=== PATIENT | female | born 1950 | race Caucasian/White ===

== ENCOUNTER → 2019-10-20 11:45 | Outpatient (CLI) | payer MEDICARE, SELFPAY ==
--- NOTE | ~2019-10-20 | MM_ITS ---
EXAMINATION: MM screening [facility] BI w ginger HISTORY: Screening mammogram TECHNIQUE: Craniocaudal and mediolateral oblique 3-D tomosynthesis images were obtained and synthetic 2-D images were generated. CAD analysis was submitted and interpreted. COMPARISON: 03/16/2018, 03/09/2010 BREAST PARENCHYMAL COMPOSITION: There are scattered areas of fibroglandular density. FINDINGS: There is been interval biopsy of the previously described left breast calcifications. There is no evidence of suspicious mass, calcification, or architectural distortion to suggest malignancy in either breast. There has been no suspicious interval change. IMPRESSION: 1. No mammographic evidence of malignancy. 2. Recommend routine screening mammography in one year. BI-RADS Category 2: Benign finding(s). Reviewed, dictated and finalized at location A. VAULT ATTENDANT
== END ==
PROVIDERS: PCP Family Medicine; Visit Provider Family Medicine
DX: Z12.31 Encounter for screening mammogram for malignant neoplasm of breast (principal)
CPT/HCPCS: 77063; 77067

== ENCOUNTER 2020-11-09 13:46 | Outpatient (CLI) | payer MEDICARE, SELFPAY ==
--- NOTE | ~2020-11-09 | XR_ITS ---
EXAMINATION: XR chest 2V DATE: 11/09/2020 15:05 INDICATION: Hypertension TECHNIQUE: PA and lateral views of the chest are obtained. COMPARISON: 01/17/2019 FINDINGS: The lungs are free of acute opacities. There is no pleural effusion or pneumothorax. The ca rdiomediastinal silhouette is normal. Thoracolumbar levoscoliosis is noted. Surgical clips in the rig ht upper quadrant are likely from prior cholecystectomy. IMPRESSION: 1. No acute cardiopulmonary abnormality. Reviewed, dictated and finalized at location A. E BALL MIXER
--- NOTE | 2020-11-09 14:39 | ECG_ITS ---
Measurements Intervals [place] Rate: 75 P: [place]: 0 QRS: 50 QRSD: 79 T: 43 QT: 401 QTc: 450 Interpretive Statements SINUS RHYTHM FREQUENT VENTRICULAR PREMATURE COMPLEXES BASELINE ARTIFACT- I, II, III, AVR, AVL, AVF, V3 ABNORMAL ECG Electronically Signed On 11-09-2020 15:11:06 PAPER TWISTER by Raúl Ohara D.O.
[2020-11-09 15:35] LABS: Urine Cotinine NEGATIVE
[2020-11-09 17:51] LABS: Hemoglobin A1C 5.2 % (<5.7)
== END 2020-11-09 13:47 | disposition home or self-care (01) ==
LOC: ANHSURGERY 13:52
PROVIDERS: PCP Family Medicine; Visit Provider Orthopaedic Surgery
DX: M16.12 Unilateral primary osteoarthritis, left hip (principal); Z01.818 Encounter for other preprocedural examination
CPT/HCPCS: 71046; 80307; 83036; 87070; 93005

== ENCOUNTER 2020-11-16 14:16 | Outpatient (CLI) | payer MEDICARE, SELFPAY | END 2020-11-16 14:17 | disposition home or self-care (01) | PROVIDERS: PCP Family Medicine; Visit Provider Orthopaedic Surgery | DX: M16.12 Unilateral primary osteoarthritis, left hip (principal); Z01.818 Encounter for other preprocedural examination | CPT/HCPCS: 36415; 82306 ==

== ENCOUNTER → 2020-11-23 00:15 | Outpatient (CLI) | payer MEDICARE, SELFPAY ==
[2020-11-23 17:44] LABS: SARS-CoV-2 RNA PCR Negative
== END ==
PROVIDERS: PCP Family Medicine; Visit Provider Orthopaedic Surgery
DX: Z01.812 Encounter for preprocedural laboratory examination (principal); Z20.822 Contact with and (suspected) exposure to COVID-19
CPT/HCPCS: C9803; U0003; U0005

== ENCOUNTER 2020-11-26 01:10 | Day surgery (SDC) | payer MEDICARE, SELFPAY ==
[2020-11-09 14:00] VITALS: BMI 32.9
[2020-11-09 14:38] VITALS: BP 143/82; PULSE 66; RESP 16; TEMP 36.8; O2SAT 98
--- NOTE | 2020-11-23 08:31 | PM.IMHP ---
H&P: HPI History of Present Illness Date/Time: 11/23/20 08:[id number] y/o patient of Dr. Mcleod.She presents today for and anterior left total hip arthroplasty. She has been having increasing pain in the left hip. She is at a point now where she is having severe pain on a daily basis. She has been on Celebrex daily as well as tramadol p.r.n. without improvement of her symptoms. She has severe arthritis in the left hip. She has undergone a right total hip replacement and did very well with this back in 2019. She has reached a point where she just feels she is ready to proceed with total hip arthroplasty rather continue nonsurgical treatment. <ELOISA Marshall - Last Filed: 11/23/20 08:39> Chief Complaint: left hip DJD <ELOISA Marshall - Last Filed: 11/23/20 08:39> Review of Systems Review of Systems: All systems reviewed & are unremarkable except as noted in HPI and below <ELOISA Marshall - Last Filed: 11/23/20 08:39> [facility] Past Medical History Medical History: Medical History Chronic low back pain Depression Dyslipidemia Essential (primary) hypertension First degree atrioventricular block 09/20/2018 Mild intermittent asthma in adult without complication Scoliosis Unspecified osteoarthritis, unspecified site <ELOISA Marshall - Last Filed: 11/23/20 08:39> Surgical History Surgical History: Surgical History History of cholecystectomy History of right knee joint replacement 2016 History of total right hip replacement 2019 <ELOISA Marshall - Last Filed: 11/23/20 08:39> Family History Family History: Family History Other Diabetes mellitus Family history of coronary artery disease Hypertension <ELOISA Marshall - Last Filed: 11/23/20 08:39> Social History Social History: Social History Years smoked: 30 Smoking status: Former smoker Tobacco type: cigarettes Second hand tobacco smoke exposure: No Smoking end date: 08/31/18 Additional smoking assessment comments: DENIES ANY FORM OF TOBACCO USE Alcohol intake: never Substance use: never Substance use type: does not use Living arrangements: alone Spiritual care concerns: No <ELOISA Marshall - Last Filed: 11/23/20 08:39> Meds Home Medications and Allergies Home medications: Home Medications Medication Instructions Recorded Confirmed Type cholecalciferol (vitamin D3) 25 25 mcg PO DAILY 04/09/20 11/26/20 History mcg (1,000 unit) capsule caxravo-lonszctav-jrid 1 tablet PO DAILY 11/09/20 11/26/20 History celecoxib 200 mg PO DAILY PRN 11/09/20 11/26/20 History coQ10 (ubiquinol) 100 mg PO DAILY 11/09/20 11/26/20 History cyanocobalamin (vitamin B-12) 1,000 mcg PO DAILY 11/09/20 11/26/20 History fluticasone furoate-vilanterol 1 inh INHALATION DAILY 11/09/20 11/26/20 History [Breo Ellipta] tramadol 50 mg PO PRN PRN 11/09/20 11/26/20 History lisinopril 5 mg PO DAILY 11/26/20 11/26/20 History pravastatin 20 mg PO DAILY 11/26/20 11/26/20 History sertraline 50 mg PO DAILY 11/26/20 11/26/20 History <ELOISA Marshall - Last Filed: 11/23/20 08:39> Allergies/Adverse reactions: Allergies Allergy/AdvReac Type Severity Reaction Status Date / Time Sulfa (Sulfonamide AdvReac Mild Rash Verified 11/26/20 06:12 Antibiotics) <ELOISA Marshall - Last Filed: 11/23/20 08:39> Exam Narrative: Exam Narrative: 70-year-old female alert pleasant. She is 4 ft 10 and 154 lb. Left hip flexes to 90? internally rotates to 0 externally rotates 25 ball with moderate groin pain. Skin is all normal or around the anterior groin. She does have some [id number] tenderness over the greater trochanter and some mild weakness with abductor testing in lateral pos
[2020-11-26] VITALS (12 sets, daily range): BP systolic 114–136; BP diastolic 56–84; PULSE 62–82; RESP 11–20; TEMP 35.8–37.2; O2SAT 92–100
--- NOTE | ~2020-11-26 | XR_ITS ---
EXAMINATION: XR surgery orthopedic DATE: 11/26/2020 10:51 INDICATION: Anterior approach left total hip arthroplasty TECHNIQUE: Single frontal fluoroscopic spot image of the left hip was obtained during procedure perfo rmed by Dr. Plaza. Radiologist was not present for the imaging or procedure. The amount of fluorosc opy time used during this procedure was 0.7 minutes. COMPARISON: None. FINDINGS: Noncemented left total hip arthroplasty which is in near-anatomic alignment on the single provided fr ontal projection. No fracture. Expected loosening soft tissue gas at the operative bed. IMPRESSION: 1. Left total hip arthroplasty in near-anatomic alignment, negative for postoperative purposes. Reviewed, dictated and finalized at location A. IMPRESSION: 1. Left total hip arthroplasty in near-anatomic alignment, negative for postope rative purposes.
--- NOTE | ~2020-11-26 | XR_ITS ---
EXAMINATION: XR hip LT min 2V EXAM DATE: 11/26/2020 11:18 INDICATION: TECHNIQUE: Portable frontal, crosstable lateral projections left hip obtained immediately following arthroplasty. Procedure performed by Crow Plaza MD. FINDINGS: Patient is status post left hip arthroplasty. The orthopedic hardware is in expected posi tion. There is a laterally placed surgical drain. There is small amount of subcutaneous gas, some s oft tissue swelling. Correlate with procedure note. There was an existing right hip arthroplasty. IMPRESSION: Status post left hip arthroplasty. Reviewed, dictated and finalized at location A.
[2020-11-26] MEDS: ACETAMINOPHEN 500 MG TABLET 1000 MG PO ×3 (06:35→17:20)
[2020-11-26] MEDS: LACTATED RINGERS 1,000 ML 30 ML IV CONT ×2 (06:40→11:22)
--- NOTE | 2020-11-26 06:43 | WPDANESEPPF ---
Anes - Initial Pre Proc Eval Procedure: Operation Date: 11/26/20 07:30 Proposed Procedures p Left Total Hip Arthroplasty Anterior Approach - Crow Plaza MD Date/Time: 11/26/20 06:43 Surgeon: Crow Plaza MD Pre Op Diagnosis: Left Hip OA Patient Data Age: 70 Gender: F Height: 5 ft Weight: 73.8 kg Last Vital Signs Temp 36.8 C 11/09/20 14:38 Pulse 66 11/09/20 14:38 Resp 16 11/09/20 14:38 BP 143/82 H 11/09/20 14:38 Pulse Ox 98 11/09/20 14:38 Allergies Allergy/AdvReac Type Severity Reaction Status Date / Time Sulfa (Sulfonamide AdvReac Mild Rash Verified 11/26/20 06:12 Antibiotics) Home Medications Medication Instructions Recorded Confirmed Type cholecalciferol (vitamin D3) 25 25 mcg PO DAILY 04/09/20 11/26/20 History mcg (1,000 unit) capsule mgodyzj-trddsnkzk-igyz 1 tablet PO DAILY 11/09/20 11/26/20 History celecoxib 200 mg PO DAILY PRN 11/09/20 11/26/20 History coQ10 (ubiquinol) 100 mg PO DAILY 11/09/20 11/26/20 History cyanocobalamin (vitamin B-12) 1,000 mcg PO DAILY 11/09/20 11/26/20 History fluticasone furoate-vilanterol 1 inh INHALATION DAILY 11/09/20 11/26/20 History [Breo Ellipta] tramadol 50 mg PO PRN PRN 11/09/20 11/26/20 History lisinopril 5 mg PO DAILY 11/26/20 11/26/20 History pravastatin 20 mg PO DAILY 11/26/20 11/26/20 History sertraline 50 mg PO DAILY 11/26/20 11/26/20 History Patient hx anesthesia problems: post op nausea/vomiting Family hx anesthesia problems: none PMFSH Past Medical History Medical History Chronic low back pain Depression Dyslipidemia Essential (primary) hypertension First degree atrioventricular block 09/20/2018 Mild intermittent asthma in adult without complication Scoliosis Unspecified osteoarthritis, unspecified site Surgical History Surgical History History of cholecystectomy History of right knee joint replacement 2016 History of total right hip replacement 2019 Family History Family History Other Diabetes mellitus Family history of coronary artery disease Hypertension Social History Social History Years smoked: 30 Smoking status: Former smoker Tobacco type: cigarettes Second hand tobacco smoke exposure: No Smoking end date: 08/31/18 Additional smoking assessment comments: DENIES ANY FORM OF TOBACCO USE Alcohol intake: never Substance use: never Substance use type: does not use Living arrangements: alone Spiritual care concerns: No Anes - Eval Final PreProcedure Day of Procedure 11/26/20 06:43 Patient weight: obese Heart: regular rate and rhythm Lungs: decreased breath sounds Airway: Mallampati scale class II Neurological: alert and oriented Last oral intake: >/= 8 hours ASA classification: III Emergent: no Anesthetic plan: proceed Anesthesia type and monitoring: general ETT and standard monitoring Informed Consent: The patient's anesthetic plan and its attendant risks and benefits were discussed with the patient/family/POA. Questions were solicited and answers provided to the satisfaction of the patient/family/POA.
[2020-11-26] MEDS: TRANEXAMIC ACID 1,000MG/ISO100 1,000 MG/100 ML BAG 200 MG IVPB (06:52)
--- NOTE | 2020-11-26 07:17 | WPDHPUPDATE1 ---
History and Physical Update Update Date/Time: 11/26/20 07:17 History and Physical has been reviewed, including an updated exam of the patient. There are NO changes in the patient's condition. Risks, benefits, and alternatives have been discussed and questions answered. Patient agrees to proceed with procedure.
[2020-11-26] MEDS: ceFAZolin 2 GM/D5W 50 ML 2 GM/50 ML BAG IVPB (07:38)
[2020-11-26] MEDS: ceFAZolin SODIUM 1 GM VIAL 3 GM IRRIGATION (08:29)
[2020-11-26] MEDS: ceFAZolin SODIUM 1 GM VIAL IV PUSH (10:43)
--- NOTE | 2020-11-26 11:43 | P.OP_ITS ---
Procedure Note - Detailed Date of procedure: 11/26/20 Pre-op diagnosis: Left Hip OA Post-op diagnosis: same Procedure performed: Direct anterior approach left total hip arthroplasty Description of procedure: Patient was brought to the operating room and general anesthesia was administered. Padding was placed on the feet and feet placed in the boots and she was transferred to [facility] table and the left hip prepped draped usual fashion. She received 2 g of Ancef weight based vancomycin 1 g of tranexamic acid preoperatively. A 10 cm longitudinal incision was made starting 3 cm lateral to the ASIS. Dissection was carried down to the fascia over the tensor fascia vinicio which was longitudinally incised and elevated off the anterior 1/2 the tensor fascia vinicio and interval between TFL and rectus femoris developed. Crossing branches of ascending branch lateral femoral circumflex vessels were ligated with suture and divided. The capsule was exposed hip was abducted internally rotated and gluteus minimus was elevated off the lateral capsule. Capsule was incised in the usual fashion. Femoral neck osteotomy made napkin ring of bone removed femoral head removed without difficulty. It measured 47 mm diameter. The labrum was excised. The leg was externally rotated extended and interval between conjoined tendon and piriformis was incised which allowed the piriformis to flip and the femur mobilized anteriorly. Anterior capsule was elevated off the anterior distal femur. With the leg in the horizontal position externally rotated the acetabulum was prepared medialized with a 44 and reaming up to 49 and 49 trial head tight fit. We gently reamed with a 50 and impacted a 50 pinnacle shell was obtained excellent press fit. Single screw was placed in the ilium. This was placed at 40? of abduction and the anterior margin just under the anterior margin of the acetabulum. This left a few mm proud superior posteriorly. The 32 inner diameter acetabular liner was seated without difficulty. The femur was externally rotated and extended and we broached up to a size 3 which had solid torsional stability varus valgus stability. We trialed and I felt that the standard offset with a +9 head restored the length and offset most appropriately and this gave excellent stability with nice Shuck. The size 3 standard neck Actis stem was fully seated to the level of the calcar planing. There was excellent stability of the stem and radiograph showed that it filled line to line in the intramedullary surface. We trialed and again the 9 gave the appropriate Shuck but with excellent stability. The ceramic 9 was placed onto the clean and dried trunnion and the hip reduced. The wound had been irrigated multiple times during the procedure with Ancef solution. Appropriate stability and soft tissue tension reconfirmed. The anterior capsular flap was allowed to rest in situ Some of the lateral capsular flap was resected earlier. The fascia over the tensor fascia vinicio was closed with running 1. Vicryl a drain binu susie deep in the subcutaneous layer skin closed with to a subcutaneous Vicryl and glue EBL is 300 cc. One hundred twenty-five as Cell Saver was returned. She received an additional g of Ancef in g of tranexamic acid time wound closure was transferred postop recovery room stable condition. She was seen to be able to wiggle her toes up and down without difficulty at that time. Implants: depuy actis Anesthesia: GETA Surgeon: Crow Plaza MD Insulation Board Calender Operator: Mary Estimated blood loss (mL): 300 Drains: Yes Packing: No Pathology: none sent Condition: stable Disposition: PACU Findings: 125 cc cell saver returned.
[2020-11-26] MEDS: ONDANSETRON INJ 4 MG/2 ML VIAL IV PUSH ×2 (11:54→17:34)
[2020-11-26] MEDS: fentaNYL CITRATE INJ (*CRX) 100 MCG/2 ML VIAL 25 MCG IV PUSH ×4 (11:57→12:11)
--- NOTE | 2020-11-26 12:40 | ADMGEN ---
This patient, Tamera Sibley, was admitted to Medical Room 253-01. Patient/family oriented to hospital policies and general routines including ID bracelet, bed and alarms, visiting hours, pain management, procedures, bathroom and other care routines, personal items, smoking policy, room service/diet, and visiting hours. Information on how to activate the Rapid Response Team has been discussed. Patient/Family are encouraged to report perceived risks to care and to ask questions if they do not understand what they are told or what they should do.
[2020-11-26 12:55] LABS: Hemoglobin 12.6 g/dL (12.0-15.0)
[2020-11-26] MEDS: oxyCODONE HCL (*CRX) 5 MG TAB IR PO ×3 (13:30→21:31)
[2020-11-26] MEDS: SENNA/DOCUSATE SODIUM TABLET 2 TAB PO (17:20)
[2020-11-26] MEDS: FAMOTIDINE 20 MG TABLET PO (21:30)
[2020-11-26] MEDS: APIXABAN 2.5 MG TABLET PO (21:30)
[2020-11-27] MEDS: oxyCODONE HCL (*CRX) 5 MG TAB IR PO ×3 (00:26→08:07)
[2020-11-27] MEDS: ACETAMINOPHEN 500 MG TABLET 1000 MG PO ×3 (00:26→11:02)
[2020-11-27 02:15] VITALS: BP 130/73; PULSE 68; RESP 20; TEMP 36.2; O2SAT 98
[2020-11-27 04:53] VITALS: BP 130/73; PULSE 68; RESP 20; TEMP 36.2; O2SAT 98
[2020-11-27 05:34] LABS: Basophils Percent Auto 0.2 % (0.2-1.2); Eosinophils Percent Auto 0.1 % (0-4.4); Hematocrit 33.6 % (37.0-47.0); Immature Granulocyte Absolute 0.08 K/mm3 (0.00-0.031); Immature Granulocyte Percent A 0.6 % (0-0.5); Lymphocytes Percent Auto 8.5 % (18.3-44.2); Mean Corpuscular HGB Conc 32.7 g/dl (32-36); Mean Corpuscular Hemoglobin 31.2 pg (26-34); Mean Corpuscular Volume 95.2 fl (80-100); Mean Platelet Volume 10.5 fl (7.4-10.4); Monocytes Absolute Auto 0.9 K/mm3 (0.1-0.6); Neutrophils Absolute Auto 10.8 K/mm3 (1.3-6.7); Neutrophils Percent Auto 83.6 % (45.5-73.1); Platelet Count Result 191 k/mm3 (150-375); Red Blood Count 3.53 M/mm3 (4.2-5.4); Red Cell Distribution Width 13.5 % (11.5-14.5); White Blood Count 12.9 K/mm3 (4.5-10.0)
--- NOTE | 2020-11-27 06:13 | PM.PNORT ---
Progress Note: A&P Additional Plan POD 1 alert avss labs-noted BMP-pending, pt has been up walking with PT yesterday, and up to restroom overnight, drain is out NVI wd-dry, overall pt doing well, plan to send home later today Subjective Subjective Date/Time Seen: 11/27/20 06:13 Objective Data Vital Signs Vital Signs: Vital Signs - 24 hr 11/26/20 06:14 11/26/20 11:22 11/26/20 11:37 Temperature 37.2 C 36.6 C Pulse Rate 76 79 82 Respiratory Rate 20 16 14 Blood Pressure 114/60 114/56 L 136/70 Pulse Oximetry 98 100 100 11/26/20 11:50 11/26/20 12:05 11/26/20 12:20 Temperature Pulse Rate 75 67 67 Respiratory Rate 11 L 16 13 Blood Pressure 136/69 123/69 132/84 Pulse Oximetry 98 94 92 11/26/20 12:40 11/26/20 13:25 11/26/20 14:15 Temperature 35.8 C L 36.3 C L Pulse Rate 62 63 Respiratory Rate 14 14 16 Blood Pressure 124/72 131/62 Pulse Oximetry 92 98 95 11/26/20 17:04 11/26/20 20:31 11/26/20 20:49 Temperature 35.9 C L 36.1 C L Pulse Rate 71 65 72 Respiratory Rate 16 20 Blood Pressure 136/78 124/68 Pulse Oximetry 98 96 93 11/27/20 02:15 11/27/20 04:53 Temperature 36.2 C L 36.2 C L Pulse Rate 68 68 Respiratory Rate 20 20 Blood Pressure 130/73 130/73 Pulse Oximetry 98 98 Intake/Output Intake/Output: Intake & Output 11/24/20 11/25/20 11/26/20 11/27/20 23:59 23:59 23:59 23:59 Intake Total 1570 340 Output Total 590 990 Balance 980 -650 Meds/Results Medications: Active Medications Generic Name Dose Route Start Last Admin Trade Name Freq PRN Reason Stop Dose Admin Acetaminophen 1,000 mg 11/26/20 12:30 11/27/20 05:20 Acetaminophen 500 Mg Tablet PO 1,000 mg Q6HR WILSON Administration Al Hydrox/Mg Hydrox/Simethicone 30 ml 11/26/20 12:30 Mag Hydrox/Al Hydrox/Simeth 30 Ml Udc PO Q6H PRN Indigestion Apixaban 2.5 mg 11/26/20 21:00 11/26/20 21:30 Apixaban 2.5 Mg Tablet PO 2.5 mg Q12HR WILSON Administration Budesonide/Formoterol Fumarate 2 puff 11/26/20 20:00 11/26/20 20:23 Budesonide/Form 160-4.5 Mcg (*Sp) INHALATION 2 puff Q12HRT WILSON Administration Celecoxib 200 mg 11/27/20 09:00 Celecoxib 200 Mg Capsule PO DAILY WILSON Famotidine 20 mg 11/26/20 21:00 11/26/20 21:30 Famotidine 20 Mg Tablet PO 20 mg Q12HR WILSON Administration Hydroxyzine HCl 50 mg 11/26/20 12:30 Hydroxyzine Hcl 25 Mg Tablet PO Q4H PRN Itching Vancomycin HCl 1,000 mg in 250 mls @ 250 mls/hr 11/26/20 19:00 11/26/20 19:32 Vancomycin 1,000 Mg/D5w 250 Ml IVPB 11/27/20 07:59 Infused Q12H WILSON Infusion Cefazolin Sodium 1 gm in 50 mls @ 100 mls/hr 11/26/20 14:00 11/27/20 05:50 Ancef 1 Gm/D5w 50 Ml Pm IVPB 11/27/20 06:29 Infused Q8H WILSON Infusion Magnesium Hydroxide 30 ml 11/26/20 12:30 Magnesium Hydroxide Susp 30 Ml Udc PO BID PRN Constipation Morphine Sulfate 2 mg 11/26/20 12:30 Morphine Sulfate (*Crx) 2 Mg/Ml Inj IV PUSH Q4H PRN Pain Rated 7-10 Naloxone HCl 0.1 mg 11/26/20 12:30 Naloxone Hcl 0.4 Mg/Ml Vial IV PUSH Q2M PRN Opiate Reversal Ondansetron HCl 4 mg 11/26/20 12:30 11/26/20 17:34 Ondansetron Inj 4 Mg/2 Ml Vial IV PUSH 4 mg Q4H PRN Administration Nausea And Vomiting Oxycodone HCl 5 mg 11/26/20 13:00 11/27/20 05:19 Oxycodone Hcl (*Crx) 5 Mg Tab Ir PO 5 mg Q4H WILSON Administration Oxycodone HCl 5 mg 11/26/20 12:30 Oxycodone Hcl (*Crx) 5 Mg Tab Ir PO Q4H PRN Pain Rated 4-6 Polyethylene Glycol 17 gm 11/27/20 09:00 Polyethylene Glycol 3350 17 Gm Powd.Pack PO QAM [facility] Pravastatin Sodium 20 mg 11/27/20 09:00 Pravastatin Sodium 20 Mg Tablet PO DAILY [facility] Senna/Docusate Sodium 2 tab 11/26/20 17:00 11/26/20 17:20 Senna/Docusate Sodium Tablet PO 2 tab BID [facility] Administration Sertraline HCl 50 mg 11/27/20 09:00 Sertraline Hcl 50 Mg Tablet PO DAILY [facility] Vitamin D 1,000 units 10/31
--- NOTE | 2020-11-27 06:20 | PM.DS ---
DS: Admitting Diagnosis Admitting Diagnosis Admitting Diagnosis: left hip DJD DS: Summary Hospital Course Hospital Course: stable Time Spent with Patient Time attestation: Total time spent providing and/or coordinating discharge services: 70-year-old female underwent a left anterior total hip arthroplasty 11/26/2020. With the procedure without any complications. Postoperatively she has been afebrile vital Signs is stable no rash intact her wound is dry. Drain is out. She is 50% weight-bearing walker for 1st month. She oxycodone 5 mg every 4 hours as well as Celebrex once a day schedule Tylenol for pain control. She will be Eliquis for 5 weeks for DVT prophylaxis. Postop day 1 patient was alert comfortable pain was controlled. We will plan have the patient work with physical therapy on postop day 1 and his long as she is doing well her symptoms they very tolerable will plan on discharging home later that day on 11/27. She also Hohmann Senokot MiraLax. Patient was advised to keep leg elevated at home prevent swelling. Again she is to use the walker be 50% weight-bearing for the 1st month. Was advised any questions or concerns when she goes home she should call the office otherwise will see her at her point to date. DS: Data Data Completed and Pending Labs on day of discharge: Labs from last 24 hours 11/27/20 11/27/20 11/26/20 05:19 05:19 12:50 WBC 12.9 H RBC 3.53 L Hgb 11.0 L 12.6 Hct 33.6 L 38.0 MCV 95.2 MCH 31.2 MCHC 32.7 RDW 13.5 Plt Count 191 MPV 10.5 H Immature Gran % (Auto) 0.6 H Neut % (Auto) 83.6 H Lymph % (Auto) 8.5 L [place] % (Auto) 7.0 Eos % (Auto) 0.1 Baso % (Auto) 0.2 Lymph # (Auto) 1.10 [place] # (Auto) 0.9 H Eos # (Auto) 0.0 Baso # (Auto) 0.0 Abs Immat Gran (auto) 0.08 H Absolute Neuts (auto) 10.8 H Absolute Nucleated RBC 0.0 Nucleated RBC % 0.0 Sodium Pending Potassium Pending Chloride Pending Carbon Dioxide Pending Anion Gap Pending BUN Pending Creatinine Pending Estim Creat Clear Calc Pending Estimated GFR Pending Glucose Pending Calcium Pending Blood Type Antibody Screen 11/26/20 06:37 WBC RBC Hgb Hct MCV MCH MCHC RDW Plt Count MPV Immature Gran % (Auto) Neut % (Auto) Lymph % (Auto) [place] % (Auto) Eos % (Auto) Baso % (Auto) Lymph # (Auto) [place] # (Auto) Eos # (Auto) Baso # (Auto) Abs Immat Gran (auto) Absolute Neuts (auto) Absolute Nucleated RBC Nucleated RBC % Sodium Potassium Chloride Carbon Dioxide Anion Gap BUN Creatinine Estim Creat Clear Calc Estimated GFR Glucose Calcium Blood Type O Positive Antibody Screen Negative Discharge Plan Discharge Patient Disposition: Home, Self-Care Discharge Instructions: [facility], [place] [address] [address] [place] [id number] POST-OPERATIVE DISCHARGE INSTRUCTIONS ANTERIOR TOTAL HIP ARTHROPLASTY 1. Move toes/feet up and down every hour while awake. 2. Be up walking every hour while awake. 3. Use walker insole lip turner with 50% WB on surgical leg. Avoid sitting in a chair unless eating, receiving visitors or using the toilet. 4. When resting, lie on back with leg elevated above heart to minimize swelling. Significant swelling could indicate a blood clot and if this occurs, call the office (or go to the ER) to have a venous ultrasound performed. 5. Wound Care: Keep dry sponge on wound for 2 weeks. Use minimal tape. 6. Follow weight bearing status as instructed. 7. May shower with dressing off. Patient Instructions: Precautions after Total Joint Replacement Surgery (DC), Total Hip Replacement (DC) Follow-up/Referrals: Crow Plaza MD [Physician] - Keep Reg. Scheduled Appt. Discharge Medications: New celecoxib [Celebrex] 200 mg Capsule 200 mg PO DAILY Qty: 14 RF: 0 po
[2020-11-27 06:43] LABS: Anion Gap 5 mmol/L (8-16); Blood Urea Nitrogen 12 mg/dL (7-17); Calcium 8.9 mg/dL (8.4-10.2); Carbon Dioxide 24 mmol/L (22-30); Chloride 109 mmol/L (98-107); Estimated CRCL calculation 50 ml/min; Estimated Glomerular Filt Rate > 60; Glucose 101 mg/dL (65-105); Potassium 4.3 mmol/L (3.4-5.0); Sodium 138 mmol/L (137-145)
[2020-11-27] MEDS: CELECOXIB 200 MG CAPSULE PO (08:05)
[2020-11-27] MEDS: APIXABAN 2.5 MG TABLET PO (08:05)
[2020-11-27] MEDS: FAMOTIDINE 20 MG TABLET PO (08:06)
[2020-11-27] MEDS: CHOLECALCIFEROL 1,000 UNITS TABLET 1000 UNITS PO (08:06)
[2020-11-27] MEDS: polyethylene glycoL 3350 17 GM POWD.PACK PO (08:07)
[2020-11-27] MEDS: SENNA/DOCUSATE SODIUM TABLET 2 TAB PO (08:07)
[2020-11-27] MEDS: SERTRALINE HCL 50 MG TABLET PO (08:07)
[2020-11-27] MEDS: PRAVASTATIN SODIUM 20 MG TABLET PO (08:07)
--- NOTE | 2020-11-27 09:38 | P.PNAN_ITS ---
Anes - Prog Note Post-Op Date/Time: 11/27/20 09:38 Cardiovascular status: normal Respiratory status: normal Airway patency: baseline Mental status: baseline Post-Op hydration status: normal Vital Signs: Last Vital Signs Temp 36.2 C L 11/27/20 04:53 Pulse 68 11/27/20 04:53 Resp 20 11/27/20 04:53 BP 130/73 11/27/20 04:53 Pulse Ox 98 11/27/20 04:53 Pain Score (VAS): 2 I/O: Intake & Output 11/26/20 11/27/20 11/27/20 23:59 07:59 15:59 Intake Total 780 340 Output Total 530 990 Balance 250 -650 Laboratory Tests 11/27/20 05:19 11/27/20 06:09 11/26/20 11/27/20 11/27/20 12:50 05:19 06:09 WBC 12.9 H RBC 3.53 L Hgb 12.6 11.0 L Hct 38.0 33.6 L MCV 95.2 MCH 31.2 MCHC 32.7 RDW 13.5 Plt Count 191 MPV 10.5 H Immature Gran % (Auto) 0.6 H Neut % (Auto) 83.6 H Lymph % (Auto) 8.5 L [place] % (Auto) 7.0 Eos % (Auto) 0.1 Baso % (Auto) 0.2 Lymph # (Auto) 1.10 [place] # (Auto) 0.9 H Eos # (Auto) 0.0 Baso # (Auto) 0.0 Abs Immat Gran (auto) 0.08 H Absolute Neuts (auto) 10.8 H Absolute Nucleated RBC 0.0 Nucleated RBC % 0.0 Sodium 138 Potassium 4.3 Chloride 109 H Carbon Dioxide 24 Anion Gap 5 L BUN 12 Creatinine 0.80 Estim Creat Clear Calc 50 Estimated GFR > 60 Glucose 101 Calcium 8.9 Post-procedural complaints: none Patient Feedback: Patient satisfied with anesthetic care.
== END 2020-11-27 11:35 | disposition home or self-care (01) ==
LOC: ANHSURGERY 05:58 → ANH2MED 12:34
PROVIDERS: Physician Assistant Surgical; PCP Family Medicine; Visit Provider Orthopaedic Surgery
PROC: (CPT 27130; principal; 2020-11-26 07:30)
DX: M16.12 Unilateral primary osteoarthritis, left hip (principal); I10 Essential (primary) hypertension; E78.5 Hyperlipidemia, unspecified; J45.20 Mild intermittent asthma, uncomplicated; F32.9 Major depressive disorder, single episode, unspecified; I44.0 Atrioventricular block, first degree; Z87.891 Personal history of nicotine dependence; E66.9 Obesity, unspecified; Z68.31 Body mass index [BMI] 31.0-31.9, adult
CPT/HCPCS: 27130; 36415; 73502; 80048; 85014; 85018; 85025; 86850; 86900; 86901; 97110; 97116; 97161; 97165; 97530; A9270; C1776; J0171; J0690; J1100; J1170; J2250; J2270; J2405; J2704; J2710; J2795; J3010; J3370; J7120

== ENCOUNTER → 2020-12-28 13:27 | Outpatient (CLI) | payer MEDICARE, SELFPAY ==
--- NOTE | ~2020-12-28 | MM_ITS ---
EXAMINATION: MM screening yun BI w ginger HISTORY: Screening mammogram TECHNIQUE: Craniocaudal and mediolateral oblique 3-D tomosynthesis images were obtained and synthetic 2-D images were generated. CAD analysis was submitted and interpreted. COMPARISON: 10/20/2019 bilateral digital screening mammogram BREAST PARENCHYMAL COMPOSITION: There are scattered areas of fibroglandular density. FINDINGS: There are bilateral mammographic asymmetries with possible new opacities since 10/20/2019. B ilateral diagnostic mammography and ultrasound is recommended. IMPRESSION: 1. Bilateral mammographic asymmetries 2. Bilateral diagnostic mammography and breast ultrasound examination are recommended BI-RADS Category 0: Incomplete: Needs additional imaging evaluation. Reviewed, dictated and finalized at location A. IMPRESSION: 1. Bilateral mammographic asymmetries 2. Bilateral diagnostic mammography and breast ultrasound examination are recom mended BI-RADS Category 0: Incomplete: Needs additional imaging evaluation.
== END ==
PROVIDERS: PCP Family Medicine; Visit Provider Nurse Practitioner Family
DX: Z12.31 Encounter for screening mammogram for malignant neoplasm of breast (principal); R92.8 Other abnormal and inconclusive findings on diagnostic imaging of breast
CPT/HCPCS: 77063; 77067

== ENCOUNTER 2021-01-18 12:50 | Outpatient (CLI) | payer MEDICARE, SELFPAY ==
--- NOTE | ~2021-01-18 | MMUS_ITS ---
EXAMINATION: MM diagnostic mammo BI, US breast BI complete HISTORY: Follow-up bilateral breast asymmetries TECHNIQUE: Additional 3-D tomosynthesis images of the breasts were performed and synthetic 2-D images were generated. CAD analysis was submitted and interpreted. High resolution bilateral complete breas t ultrasound was performed. COMPARISON: Comparison to multiple prior studies sequentially, with oldest reviewed study dated 03/19. BREAST PARENCHYMAL COMPOSITION: Breast composed of scattered areas of fibroglandular density FINDINGS: MAMMOGRAPHIC FINDINGS: There are no suspicious masses, calcifications or architectural distortion in either breast to sugges t malignancy. ULTRASOUND: Complete bilateral breast ultrasound: Normal heterogeneous echotexture without focal solid or cystic mass. IMPRESSION: 1. No mammographic or sonographic evidence for malignancy in either breast. 2. Routine yearly screening mammogram and regular clinical breast examination are recommended. BI-RADS Category 1: Negative Reviewed, dictated and finalized at location A. IMPRESSION: 1. No mammographic or sonographic evidence for malignancy in either breast. 2. Routine yearly screening mammogram and regular clinical breast examination a re recommended. BI-RADS Category 1: Negative
== END 2021-01-18 12:51 | disposition home or self-care (01) ==
LOC: ANHIMG 12:51
PROVIDERS: PCP Family Medicine; Visit Provider Nurse Practitioner Family
DX: R92.8 Other abnormal and inconclusive findings on diagnostic imaging of breast (principal)
CPT/HCPCS: 76641; 77066

== ENCOUNTER → 2022-02-03 10:42 | Outpatient (CLI) | payer MEDICARE, SELFPAY ==
--- NOTE | ~2022-02-03 | MM_ITS ---
EXAMINATION: MM screening [facility] BI w ginger HISTORY: Screening mammogram TECHNIQUE: Craniocaudal and mediolateral oblique 3-D tomosynthesis images were obtained and synthetic 2-D images were generated. CAD analysis was submitted and interpreted. COMPARISON: Prior mammograms dating back to 03/16/2018 BREAST PARENCHYMAL COMPOSITION: There are scattered areas of fibroglandular density. FINDINGS: There is no suspicious mass, calcification, or architectural distortion to suggest malignan cy in either breast. There has been no suspicious interval change. IMPRESSION: 1. No mammographic evidence of malignancy. 2. Recommend routine screening mammography in one year. BI-RADS Category 1: Negative Reviewed, dictated and finalized at location A.
== END ==
PROVIDERS: PCP Nurse Practitioner; Visit Provider Nurse Practitioner
DX: Z12.31 Encounter for screening mammogram for malignant neoplasm of breast (principal)
CPT/HCPCS: 77063; 77067

== ENCOUNTER → 2023-02-17 11:36 | Outpatient (CLI) | payer MEDICARE, SELFPAY ==
--- NOTE | ~2023-02-17 | MM_ITS ---
EXAMINATION: MM screening yun BI w ginger HISTORY: Screening mammogram TECHNIQUE: Craniocaudal and mediolateral oblique 3-D tomosynthesis images were obtained and synthetic 2-D images were generated. CAD analysis was submitted and interpreted. COMPARISON: 02/03/2022, 12/28/2020, 10/20/2019 bilateral screening mammogram examinations BREAST PARENCHYMAL COMPOSITION: There are scattered areas of fibroglandular density. FINDINGS: Biopsy marker in the left; history of prior benign left stereotactic breast biopsy. Scatter ed bilateral benign calcifications. There is no evidence of suspicious mass, calcification, or dale ectural distortion to suggest malignancy in either breast. There has been no suspicious interval dubose ge. IMPRESSION: 1. No mammographic evidence of malignancy. 2. Recommend routine screening mammography in one year. BI-RADS Category 2: Benign finding(s). Reviewed, dictated and finalized at location C.
--- NOTE | ~2023-02-17 | DEXA_ITS ---
Bone Density Report Name: GABRIEL HOPSON Age: 72 Sex: Female Ethnicity: White Date of : 1950 Indication: postmenopausal; screening for osteoporosis; height loss; Referring Provider: Leena Alaniz Study: Bone densitometry was performed. 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 These spine BMD and T score and Z score measurements are not reflective of the patient's true general bone mineral density. Bone Density: Region BMD T-score Z-score Classification AP Spine (L1, L2) 1.102 1.1 3.3 Normal World Health Organization criteria for BMD impression classify patients as: Normal (T-score at or above -1.0), Osteopenia (T-score between -1.0 and -2.5), or Osteoporosis (T-score at or below -2.5). Previous Exams: Region Exam Age BMD T-score BMD Change BMD Change Date g/cm2 vs Baseline vs Previous AP Spine(L1, L2) 02/17/2023 72 1.102 1.1 -0.117* -0.117* 03/09/2010 59 1.219 2.2 *Denotes significance at 95% confidence level, LSC for AP Spine = 0.022 g/cm2 Clinical Information Provided by Patient: Has used the following medications: Vitamin D, Calcium Patient maximum height was 60.5 Menopause Age: 52 Drinks caffeinated beverages Onset of menses at age 11 Number of children 1 Impression: The patient has normal bone mass. The BMD for the AP Spine(L1, L2) decreased, changing by -0.117 since the last DXA exam. 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 These spine BMD and T score and Z score measurements are not reflective of the patient's true general bone mineral density. Discussion: LOW RISK OF FRACTURE; BONE DENSITY IS WELL ABOVE THE MINIMUM DESIRABLE LEVEL AND ABOVE AVERAGE FOR AGE AND SEX AT ALL SKELETAL SITES TESTED. This person's bone density is above expected limits for age and sex. This is rarely clinically significant, but should be pursued if there are significant musculoskeletal complaints. The patient should follow a healthful lifestyle (good nutrition with adequate calcium and vitamin D, and appropriate weight-bearing exercise). Follow-Up: Consider repeating this study in 3 to 4 years to reassess this patient's status, or sooner if there is some new clinical indication. Reported by: IRIS on 02/17/2023 11:51:00 AM. Reviewed, dictated and finalized at location ADevonte [place]
== END ==
PROVIDERS: PCP Family Medicine; Visit Provider Nurse Practitioner
DX: Z12.31 Encounter for screening mammogram for malignant neoplasm of breast (principal); Z78.0 Asymptomatic menopausal state
CPT/HCPCS: 77063; 77067; 77080

== ENCOUNTER 2023-05-18 09:50 | Outpatient (CLI) | payer MEDICARE, SELFPAY ==
[2023-05-18 20:28] LABS: Alanine Aminotransferase 22 U/L (6-35); Albumin Level 4.1 g/dL (3.5-5.1); Alkaline Phosphatase 98 U/L (38-126); Anion Gap 6 mmol/L (8-16); Aspartate Amino Transferase 35 U/L (14-36); Bilirubin,Total 0.4 mg/dL (0.2-1.3); Blood Urea Nitrogen 27 mg/dL (7-17); Calcium 9.5 mg/dL (8.4-10.2); Carbon Dioxide 29 mmol/L (22-30); Chloride 104 mmol/L (98-107); Estimated Glomerular Filt Rate > 60; Glucose 83 mg/dL (65-110); Potassium 5.2 mmol/L (3.4-5.0); Sodium 139 mmol/L (137-145)
== END 2023-05-18 09:51 | disposition home or self-care (01) ==
PROVIDERS: PCP Family Medicine; Visit Provider Family Medicine
DX: E78.5 Hyperlipidemia, unspecified (principal); I10 Essential (primary) hypertension
CPT/HCPCS: 36415; 80053

== ENCOUNTER 2025-06-29 14:35 | Outpatient (CLI) | payer MEDICARE, SELFPAY ==
--- NOTE | ~2025-06-29 | MM_ITS ---
EXAMINATION: MM screening [facility] BI w ginger HISTORY: Screening TECHNIQUE: Craniocaudal and mediolateral oblique 3-D tomosynthesis images were obtained and synthetic 2-D images were generated. CAD analysis was submitted and interpreted. COMPARISON: Comparison to multiple prior studies sequentially, with oldest reviewed study dated 10/20/2019. BREAST PARENCHYMAL COMPOSITION: Not dense: There are scattered areas of fibroglandular density. FINDINGS: There is a developing cluster of calcifications in the upper outer quadrant of the left breast which have a pleomorphic appearance. The right breast is stable without evidence for malignancy. IMPRESSION: 1. Developing cluster of pleomorphic left breast calcifications, upper outer quadrant. 2. Magnification views are recommended. BI-RADS Category 0: Incomplete: Needs additional imaging evaluation. Reviewed, dictated and finalized at location B. IMPRESSION: 1. Developing cluster of pleomorphic left breast calcifications, upper outer qu adrant. 2. Magnification views are recommended. BI-RADS Category 0: Incomplete: Needs additional imaging evaluation.
--- NOTE | ~2025-06-29 | CT_ITS ---
CT lung screening INDICATION: History of nicotine use COMPARISON: None. TECHNIQUE: CT examination of the entire thorax without contrast was performed using low dose technique. Thin section axial, sagittal and coronal images were included to increase sensitivity for small lung nodules. FINDINGS: PULMONARY NODULES: No suspicious noncalcified pulmonary nodules seen. OTHER PULMONARY FINDINGS: No significant nonnodular pleural or parenchymal abnormality is noted. Mild emphysematous changes are present. 8.6 mm precarinal lymph nodes are noted. No pathologically enlarged lymph nodes are present. Normal heart size. Coronary artery calcifications are noted in this limited nongated CTA. UPPER ABDOMEN AND PERIPHERAL SOFT TISSUE: Limited views of the upper abdomen and peripheral soft tissue demonstrated no abnormalities. OSSEOUS STRUCTURES: Bone window shows no aggressive blastic or lytic lesions. Moderate scoliosis. IMPRESSION: 1. Lung-RADS category 1: No nodules or definitely benign nodules. Recommendations: 1 or 2: Annual screening with low-dose CT in 12 months. 2. Mild emphysematous changes are present. All CT scans at this facility are performed using low dose modulation techniques as appropriate to perform exam including the following: automated exposure control; use of iterative reconstruction technique; adjustment of the mA and/or kV according to patient size (this includes techniques or standardized protocols for targeted exams where dose is matched to indication/reason for exam). Reviewed, dictated and finalized at location S. IMPRESSION: 1. Lung-RADS category 1: No nodules or definitely benign nodules. Recommendations: 1 or 2: Annual screening with low-dose CT in 12 months. 2. Mild emphysematous changes are present. All CT scans at this facility are performed using low dose modulation techniqu es as appropriate to perform exam including the following: automated exposure c ontrol; use of iterative reconstruction technique; adjustment of the mA and/or kV according to patient size (this includes techniques or standardized protocol s for targeted exams where dose is matched to indication/reason for exam).
== END 2025-06-29 14:36 | disposition home or self-care (01) ==
LOC: MICIMG 14:36
PROVIDERS: PCP Family Medicine; Visit Provider Family Medicine
DX: Z12.2 Encounter for screening for malignant neoplasm of respiratory organs (principal); Z12.31 Encounter for screening mammogram for malignant neoplasm of breast; Z87.891 Personal history of nicotine dependence; R92.8 Other abnormal and inconclusive findings on diagnostic imaging of breast
CPT/HCPCS: 71271; 77063; 77067

== ENCOUNTER 2025-07-24 15:17 | Outpatient (CLI) | payer MEDICARE, SELFPAY ==
--- OUTSIDE RECORDS SUMMARY | 2025-07-24 17:57 | XMS_ITS | Clinical Summary ---
Author Organization [facility] Address [address] [place] [id number] Care Team Providers Care Trust Advisor Name Role Phone Jennifer Mcleod MD Primary Care Provider Allergies Active Allergy Reactions Criticality Noted Date Comments Sulfa (Sulfonamide Antibiotics) Rash Medium 08/01 Medications cholecalciferol (VITAMIN D-3) 58076 unit capsule Take 1 capsule (10,000 Units total) by mouth daily Active calcium carb/mag oxide/Cu/zinc (calcium-magnes guf-ofdzar-ngrp ) tablet Take by mouth Active coenzyme Q10 100 mg capsule Take 1 capsule (100 mg total) by mouth daily Active cyanocobalamin (Vitamin B-12) 1,000 mcg tablet Take 1 tablet (1,000 mcg total) by mouth daily Active albuterol HFA (PROVENTIL HFA,VENTOLIN HFA,PROAIR HFA) 90 mcg/actuation inhaler Inhale 2 puffs every 6 (six) hours as needed Active sertraline (ZOLOFT) 50 mg tablet 06/02/2022 Active pravastatin (PRAVACHOL) 40 mg tablet 1 tablet (40 mg total) 06/24/2022 Active celecoxib (CeleBREX) 200 mg capsule Take 1 capsule (200 mg total) by mouth daily Active traMADoL (ULTRAM) 50 mg tablet Take 1 tablet (50 mg total) by mouth every 6 (six) hours as needed Active Breo Ellipta 100-25 mcg/dose diskus inhaler Inhale 1 puff daily 07/14/2022 Active lisinopriL (PRINIVIL,ZESTR IL) 5 mg tablet 07/07/2022 Act clementine Myrbetriq 25 mg tablet extended release 24 hr Take 1 tablet (25 mg total) by mouth daily 11/30/2023 Active Active Problems Problem Noted Date Diagnosed Date Preoperative cardiovascular examination 12/22/19 24 Atrioventricular block, first degree 08/26/2022 Dizziness and giddiness 08/26/2022 Primary hypertension 08/26/2022 Mixed hyperlipidemia 08/26/2022 Surgical History Surgery Date Site/Laterality Comments CHOLECYSTECTOMY REPLACEMENT TOTAL KNEE 08/31/2015 - 08/30/2016 Right HIP ARTHROPLASTY 08/31/2020 - 08/30/2021 Left TOTAL HIP ARTHROPLASTY 08/31/2018 - 08/30/2019 Right CATARACT EXTRACTION 12/09/2022 JOINT REPLACEMENT Medical History Medical History Date Comments AV block, 1st degree Dizziness Depression Hypertension Asthma Arthritis Family History Medical History Relation Name Comments Lung disease Father Heart disease Mother Inez Lung disease Mother Inez Relation Name Status Comments Father Mother Inez Social History Tobacco Use Types Packs/Day Years Used Date Smoking Tobacco: Former Cigarettes Tobacco Cessation:Counseling Given: Not Answered Comments Unknown Sex and Gender Information Value Date Recorded Sex Assigned at Not on file 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 Gender Identity Not on file Sexual Orientation Not on file Last Filed Vital Signs Vital Sign Reading Time Taken Comments Blood Pressure 122/74 12/30/2024 8:39 AM CDT Pulse 71 12/30/2024 8:39 AM CDT Temperature - - Respiratory Rate - - Oxygen Saturation 97% 12/30/2024 8:39 AM CDT Inhaled Oxygen Concentration - - Weight 68.5 kg (151 lb) 12/30/2024 8:39 AM CDT Height 149.9 cm (4' 11) 12/30/2024 8:39 AM CDT Body Mass Index 30.5 12/30/2024 8:39 AM CDT Plan of Treatment Health Maintenance Due Date Last Done Comments Colon Cancer Screening-Colonoscopy 1950 Depression Screening 1950 Fall Risk Assessment 1950 Hepatitis C Screening 1950 Osteoporosis Screening-Bone Density Scan 1950 Hepatitis B Screening 1967 Zoster Vaccine (1 of 2) 1999 Well Visit 65+ 2014 Pneumococcal vaccine 65+ (2 of 2 - PCV20 or PCV21) 06/15/2019 06/15/2018, 02/28/2018 Covid-19 Vaccine (6 - 2024-2 6 season) 2025 07/30/2023, 05/10/2022, 07/04/2021, Additional history exists Influenza Vaccine (#1) 2025 , 07/10/2022, 09/03/2017 DTaP/Tdap/Td Vaccine (2 - Td or Tdap) 06/16/2033 06/16/2023 Insurance MEDICARE ADVANTAGE Care Teams Trust Advisor Relationship Specialty Start Date End Date Jennifer Mcleod MD [id number] [address] [address] [place] [address] PCP - General Family Practice 12/30/24
--- OUTSIDE RECORDS SUMMARY | 2025-07-24 17:57 | XMS_ITS | Clinical Summary ---
Author Organization [facility] Address [address] [place] [address] Care Team Providers Care Snow Remover Name Role Phone Jennifer Mcleod MD Primary Care Provider Allergies No known active allergies Medications lisinopril (PRINIVIL) 10 mg tablet 01/30/2018 Active pravastatin (PRAVACHOL) 20 mg tablet 02/25/2018 Active sertraline (ZOLOFT) 100 mg tablet 03/15/2018 Active traMADol (ULTRAM) 50 mg tablet Take 50 mg by mouth every 6 hours as needed . 03/17/2018 Active celecoxib (CeleBREX) 50 mg capsule Take 50 mg by mouth daily. Active Active Problems Problem Noted Date Diagnosed Date Fibroadenoma of breast, left 04/08/2018 Cigarette dependence 03/23/2018 Microcalcification of left breast on mammogram 0 03/23/2018 Resolved Problems Problem Noted Date Diagnosed Date Resolved Date Malignant neoplasm of upper- inner quadrant of right breast in female, estrogen receptor positive 03/23/2018 03/23/2018 Estrogen receptor positive 03/23/2018 0 03/23/2018 Social History Tobacco Use Types Packs/Day Years Used Date Smoking Tobacco: Every Day Cigarettes 0.8 30 Smokeless Tobacco: Never Alcohol Use Standard Drinks/Week Comments No 0 (1 standard drink = 0.6 oz pur e alcohol) Comments No Sex and Gender Information Value Date Recorded Sex Assigned at Not on file Legal Sex Female 3:52 PM CDT Gender Identity Not on file Sexual Orientation Not on file Last Filed Vital Signs Vital Sign Reading Time Taken Comments Blood Pressure 100/50 04/08/2018 1:41 PM CDT Pulse 60 04/08/2018 1:41 PM CDT Temperature 36.3 C (97.4 F) 04/08/2018 1:41 PM CDT Respiratory Rate - - Oxygen Saturation 93% 04/08/2018 1:41 PM CDT Inhaled Oxygen Concentration - - Weight 65.8 kg (145 lb 1.6 oz) 04/08/2018 1:41 P M CDT Height 152.4 cm (5') 04/08/2018 1:41 PM CDT Body Mass Index 28.34 04/08/2018 1:41 PM CDT Plan of Treatment Health Maintenance Due Date Last Done Comments DTAP/TDAP/TD VACCINES (1 - Tdap) 1968 PNEUMOCOCCAL VACCINE 50+ YEARS (1 of 2 - PCV) 09/21/18 69 COLORECTAL SCREENING 1994 Colorectal Cancer Screening 1994 FIT-DNA Q 3 years 1994 FIT/FOBT Q 1 year 1994 Flex Sig/CT Colonography Q 5 years 1994 ZOSTER VACCINE (1 of 2) 1999 OSTEOPOROSIS SCREENING 2014 RSV VACCINE (60+ or ) (1 - 1-dose 75+ series) 2024 INFLUENZA VACCINE (#1) 2025 Insurance MEDICARE PART A AND B [facility] [id number] Care Teams Snow Remover Relationship Specialty Start Date End Date Jennifer Mcleod MD [address] [place] [id number] PCP - General Family Practice 03/19/18
[2025-07-24 18:55] LABS: Alanine Aminotransferase 18 U/L (6-35); Albumin Level 4.2 g/dL (3.5-5.1); Alkaline Phosphatase 111 U/L (38-126); Anion Gap 4 mmol/L (4-12); Aspartate Amino Transferase 32 U/L (14-36); Bilirubin,Total 0.4 mg/dL (0.2-1.3); Blood Urea Nitrogen 25 mg/dL (7-17); Calcium 10.0 mg/dL (8.4-10.2); Carbon Dioxide 28 mmol/L (22-30); Chloride 106 mmol/L (98-107); Estimated Glomerular Filt Rate > 60; Glucose 80 mg/dL (65-110); Potassium 5.3 mmol/L (3.4-5.0); Sodium 138 mmol/L (137-145); Total Protein 7.4 g/dL (6.3-8.2)
== END 2025-07-24 15:18 | disposition home or self-care (01) ==
LOC: ANHGOSHLAB 15:18
PROVIDERS: PCP Family Medicine; Visit Provider Family Medicine
DX: I10 Essential (primary) hypertension (principal)
CPT/HCPCS: 36415; 80053

== ENCOUNTER 2025-08-22 07:50 | Outpatient (CLI) | payer MEDICARE, SELFPAY ==
--- NOTE | ~2025-08-22 | MM_ITS ---
EXAMINATION: MM diagnostic yun LT w ginger HISTORY: Additional imaging TECHNIQUE: Craniocaudal and mediolateral oblique 3-D tomosynthesis images were obtained and synthetic 2-D images were generated. CAD analysis was submitted and interpreted. COMPARISON: June 29. Older prior studies dating back to 2018. BREAST PARENCHYMAL COMPOSITION: Dense: The breasts are heterogeneously dense FINDINGS: A mass with obscured margins is again noted in the left upper-outer quadrant, with a biopsy marker in the region of its periphery. No suspicious masses are seen. The calcifications in question are coarse and are thought to be consistent with dystrophic calcifications, likely in the fibroadenoma, given the 2018 pathology report. There are no suspicious calcifications. No unexplained architectural distortion is seen. There are no skin or nipple abnormalities identified. There is no adenopathy seen on the images submitted. IMPRESSION: No mammographic evidence to suggest malignancy is seen. The patient may return to screening mammography as per ACR guidelines. BI-RADS 2 - Benign. Reviewed, dictated and finalized at location C. [facility]
== END 2025-08-22 07:51 | disposition home or self-care (01) ==
LOC: MICIMG 07:51
PROVIDERS: PCP Family Medicine; Visit Provider Family Medicine
DX: R92.8 Other abnormal and inconclusive findings on diagnostic imaging of breast (principal)
CPT/HCPCS: 77061; 77065; G0279